=== PATIENT | female | born 1990 | race Two or more races ===

== ENCOUNTER → 2017-06-21 | Outpatient (CLI) | payer SELFPAY ==
--- NOTE | 2017-06-21 16:11 | RADIOLOGY REPORT (SQ) ---
EXAM DESCRIPTION: U/S OB 14+ TRNABD 1GES W/O DOP COMPLETED DATE/TIME: 06/21/2017 3:01 pm REASON FOR STUDY: ENCOUNTER FOR SUPERVISION OF OTHER NORMAL , SECOND TRIMESTER Z34.82 ENCO UNTER FOR SUPRVSN OF NORMAL , SECOND TRI COMPARISON: None. TECHNIQUE: Static and Dynamic grayscale imaging performed of gravid uterus using transabdominal appr oach. Additional selected color Doppler and spectral images recorded. All stored on PACS. LIMITATIONS: None. FINDINGS: EGA: 15 weeks 4 days JOHNNY: 12/09/2017 EFW: Not calculated. PERCENTILE: Not applicable. Fetus less than or equal to 20 weeks gestation. JOSE: 3.6 PLACENTA: Posterior grade 1 PRESENTATION: Cephalic. ANATOMY: HEART RATE: 137 beats per minute. FOUR CHAMBER HEART: Visualized. THREE VESSEL CORD: Yes. CORD INSERTION: Visualized. KIDNEYS AND BLADDER: Visualized. Appear normal. STOMACH: Visualized. Appears normal. SPINE: Normal as visualized. BRAIN AND LATERAL VENTRICLES: Visualized. Appear normal. OTHER: No other significant finding. MATERNAL ADNEXA: Maternal ovaries not visualized. CERVICAL LENGTH: 4.3 cm. Closed. OTHER: IMPRESSION: LIVING INTRAUTERINE . ESTIMATED GESTATIONAL AGE 15 weeks 4 days. NO VISUALIZED ANOMALIES. Trimester of : Second trimester - 13 weeks 1 day to 27 weeks 6 days. TECHNICAL DOCUMENTATION: JOB ID: [id number] [employer]- All Rights Reserved
== END ==
LOC: RAD 13:53
PROVIDERS: ATTEND Nurse Practitioner Women's Health
DX: Z34.82 Encounter for supervision of other normal pregnancy, second trimester (principal)
CPT/HCPCS: 76805

== ENCOUNTER 2017-11-29 07:34 | Inpatient (IN) | payer SELFPAY ==
[2017-11-29] MEDS ORDERED: RINGERS SOLUTION,LACTATED 500 ML IV PRN (08:33)
[2017-11-29] MEDS ORDERED: CEFAZOLIN 2 GM/D5W RTU 2 GM/50 ML RTUPB IV SCH (08:45)
[2017-11-29] MEDS ORDERED: CEFAZOLIN 2 GM/D5W RTU 2 GM/50 ML RTUPB IV PRN (09:07)
[2017-11-29 09:11] LABS: APPEARANCE,URINE SLIGHTLY-CLOUDY; BILIRUBIN,URINE NEGATIVE (NEGATIVE); COLOR,URINE YELLOW; GLUCOSE, URINE NEGATIVE (NEGATIVE); KETONES,URINE NEGATIVE (NEGATIVE); LEUKOCYTE ESTERASE,URINE NEGATIVE (NEGATIVE); NITRITE,URINE NEGATIVE (NEGATIVE); PROTEIN,URINE NEGATIVE (NEGATIVE); URINE SPECIFIC GRAVITY 1.012; UROBILINOGEN,URINE NEGATIVE mg/dL (<2.0)
[2017-11-29 09:29] LABS: ABSOLUTE EOSINOPHILS # (AUTO) 0.1 10^3/uL (0.0-0.6); ABSOLUTE LYMPHOCYTES (AUTO) 1.9 10^3/uL (0.5-4.7); ABSOLUTE MONOCYTES (AUTO) 0.4 10^3/uL (0.1-1.4); ABSOLUTE NEUT (AUTO) 4.1 10^3/uL (1.7-8.2); BASOPHILS % (AUTO) 0.5 % (0-2); HEMATOCRIT 34.8 % (36.0-47.0); HEMOGLOBIN 11.6 g/dL (12.0-15.5); LYMPHOCYTES % (AUTO) 29.4 % (13-45); MEAN CORPUSCULAR HEMOGLOBIN 25.1 pg (27.0-33.4); MEAN CORPUSCULAR HGB CONC 33.4 g/dL (32.0-36.0); MEAN CORPUSCULAR VOLUME 75 fl (80-97); MONOCYTES % (AUTO) 5.7 % (3-13); PLATELET COUNT 158 10^3/uL (150-450); RED BLOOD COUNT 4.64 10^6/uL (3.72-5.28); RED CELL DISTRIBUTION WIDTH 14.4 % (11.5-14.0); SEGMENTED NEUTROPHILS % (AUTO) 63.4 % (42-78); TOTAL CELLS COUNTED % (AUTO) 100 %; WHITE BLOOD COUNT 6.4 10^3/uL (4.0-10.5)
[2017-11-29] MEDS ORDERED: RINGERS SOLUTION,LACTATED 1,000 ML IV ONE (09:30)
[2017-11-29 09:40] LABS: URINE AMPHETAMINES SCREEN NEGATIVE; URINE BARBITURATES SCREEN NEGATIVE; URINE BENZODIAZEPINES SCREEN NEGATIVE; URINE COCAINE SCREEN NEGATIVE; URINE MARIJUANA (THC) SCREEN NEGATIVE; URINE METHADONE SCREEN NEGATIVE; URINE PHENCYCLIDINE SCREEN NEGATIVE
[2017-11-29] MEDS ORDERED: OXYTOCIN 10 UNIT/ML VIAL ONE (09:52)
[2017-11-29] MEDS ORDERED: EPHEDRINE SULFATE INJ 50 MG/1 ML AMPULE ONE (09:53)
[2017-11-29] MEDS ORDERED: PROPOFOL INJ 200 MG/20 ML VIAL IV ONE (09:53)
[2017-11-29] MEDS ORDERED: FENTANYL CITRATE INJ/PF 100 MCG/2 ML AMPUL ONE ×2 (09:53→13:33)
[2017-11-29] MEDS ORDERED: MIDAZOLAM 2 MG/2 ML INJ ONE (09:53)
[2017-11-29] MEDS ORDERED: DIPHENHYDRAMINE HCL 50 MG/ML VIAL IV PRN (11:01)
[2017-11-29] MEDS ORDERED: PROMETHAZINE HCL INJ 25 MG/1 ML VIAL IV PRN (11:01)
[2017-11-29] MEDS ORDERED: MEPERIDINE HCL/PF INJ 25 MG/1 ML DISP.SYRIN IV PRN (11:01)
[2017-11-29] MEDS ORDERED: MORPHINE SULFATE 10 MG/ML INJ IV PRN ×3 (11:01→21:30)
[2017-11-29] MEDS ORDERED: FENTANYL CITRATE INJ/PF 100 MCG/2 ML AMPUL IV PRN ×3 (11:01)
--- NOTE | 2017-11-29 12:14 | OPERATIVE REPORT E ---
Operative Report NAME: ZIA DURBIN : 1990 AGE: 27Y DATE OF SURGERY: 11/29/2017 ROOM: 218 PREOPERATIVE DIAGNOSES: 1. Intrauterine at 40+ weeks. 2. Previous section x2. 3. Undesired fertility. POSTOPERATIVE DIAGNOSES: 1. Intrauterine at 40+ weeks. 2. Previous section x2. 3. Undesired fertility. SURGEON: CECILY GRAJEDA M.D. ANESTHESIA: Dr. Valenzuela with spinal. FINDINGS: Female infant in cephalic presentation with Apgars of 8 and 9. ESTIMATED BLOOD LOSS: 600 mL. PATHOLOGY: Bilateral fallopian tubes. PROCEDURE: Repeat low transverse hysterotomy section with [place] tubal ligation. PROCEDURE IN DETAIL: The patient was taken to the operating room and prepared and draped in a normal sterile fashion in the supine position with a leftward tilt. A transverse skin incision was made with the scalpel following the patient's previous scar. This was carried through to the underlying layer of fascia with the same scalpel and the fascia was excised in the midline and extended laterally with Venegas's. The rectus muscle was then dissected sharply from the fascia with Venegas's and the rectus muscle was divided. The peritoneal cavity was entered bluntly. With good visualization of the bladder in the uterus, a bladder blade was inserted and the hysterotomy was nicked with a scalpel and extended laterally with surgeon finger fracture. The infant was then delivered atraumatically. The nose and mouth were suctioned with a suction bulb and the cord was clamped and cut and the infant was handed off to awaiting systems integration engineer. The cord blood was collected. The placenta was removed manually. The uterus was exteriorized and cleared of clots and debris. The hysterotomy was closed with 0 Monocryl in a running, locked fashion and a second layer of the same suture was used to imbricate to ensure hemostasis. Attention was then turned to the fallopian tubes where the right fallopian tube was grasped with a [place] and the mesosalpinx was divided. A 3.5 cm section of fallopian tube was then tied off with 2 pieces of 2-0 Chromic and the intermediate section was then cut with Metzenbaum's. The pedicles were made hemostatic with a Bovie. This procedure was repeated on the left fallopian tube without difficulty. The uterus was then returned to the abdomen. Peritoneal cavity was cleared of clots and debris and the pedicles were reinspected and found to be hemostatic and intact. The rectus muscle and peritoneum were reapproximated with a mattress stitch of 2-0 Chromic. The fascia was closed with 0 Vicryl. The subcutaneous layer was closed with plain catgut and the skin was closed with 4-0 Vicryl. The patient tolerated procedure well. Sponge, lap, and needle counts were correct x2. The patient was taken to recovery in stable condition. DICTATING PHYSICIAN: CECILY GRAJEDA M.D. [id number] PHY#: [id number] ID: [id number] JOB#: [id number] ACCT: [id number] cc:CECILY GRAJEDA M.D. >
[2017-11-29] MEDS ORDERED: ACETAMINOPHEN 100 ML IV ONE ×2 (12:33→19:00)
[2017-11-29] MEDS ORDERED: KETOROLAC TROMETHAMINE INJ/PF 30 MG/1 ML SDV IV SCH (14:00)
[2017-11-29] MEDS ORDERED: OXYTOCIN/NORMAL SALINE 20 UNIT/1,000 ML RTUINJ INJ PRN (14:22)
[2017-11-29] MEDS ORDERED: RINGERS SOLUTION,LACTATED 1,000 ML IV SCH (14:30)
[2017-11-29] MEDS ORDERED: MORPHINE SULFATE 10 MG/ML INJ IM PRN ×2 (14:30)
[2017-11-29] MEDS ORDERED: OXYCODONE-ACETAMINOPHEN 5-325 MG TABLET PO PRN ×2 (14:30)
[2017-11-29] MEDS ORDERED: PROMETHAZINE HCL INJ 25 MG/1 ML VIAL IM PRN (14:30)
[2017-11-29] MEDS ORDERED: MEASLES,MUMPS&RUBELLA VACC/PF 0.5 ML VIAL SUBCUT PRN (14:30)
[2017-11-29] MEDS ORDERED: ACETAMINOPHEN 325 MG TABLET PO PRN (14:30)
[2017-11-29] MEDS ORDERED: SIMETHICONE 80 MG TAB.CHEW PO PRN (14:30)
[2017-11-29] MEDS ORDERED: DIPH/PERTUSS(ACELL)/TETANUS VAC/PF 0.5 ML SYR (>=10YO) IM PRN (14:30)
[2017-11-29] MEDS: DOCUSATE SODIUM 100 MG CAPSULE PO SCH (17:48)
[2017-11-29] MEDS ORDERED: CEFAZOLIN 2 GM/D5W RTU 2 GM/50 ML RTUPB IV ONE (19:00)
[2017-11-30] MEDS: KETOROLAC TROMETHAMINE INJ/PF 30 MG/1 ML SDV IV SCH ×2 (01:59→09:53)
[2017-11-30 06:57] LABS: HEMATOCRIT 36.2 % (36.0-47.0); HEMOGLOBIN 12.1 g/dL (12.0-15.5); MEAN CORPUSCULAR HEMOGLOBIN 25.2 pg (27.0-33.4); MEAN CORPUSCULAR HGB CONC 33.4 g/dL (32.0-36.0); MEAN CORPUSCULAR VOLUME 76 fl (80-97); PLATELET COUNT 140 10^3/uL (150-450); RED BLOOD COUNT 4.79 10^6/uL (3.72-5.28); RED CELL DISTRIBUTION WIDTH 14.7 % (11.5-14.0)
--- NOTE | 2017-11-30 08:52 | PDOC PROGRESS REPORT ---
Subjective-OB Subjective: Post Delivery Day: 27 year old. Denies any needs at this time Physical Exam (OB) Vital Signs: Temp Pulse Resp BP Pulse Ox 98.2 F 74 16 117/67 98 11/30/17 07:32 11/30/17 07:32 11/30/17 07:32 11/30/17 07:32 11/30/17 07:32 Intake & Output 11/29/17 11/30/17 12/01/17 06:59 06:59 06:59 Intake Total 3050 Output Total 4900 Balance -1850 Weight 89 kg - Dressing Removed: No - Medipore dressing D&I Incision: Dressing Closure Type: Sutures - Lochia Lochia Amount: Scant < 10 ml Lochia Color: Rubra/Red - Abdomen Description: Tender, Soft Hernia Present: No Bowel Sounds: Normoactive Fundal Description: Firm, Midline Fundal Height: u/u - u/2 - Respiratory Breath sounds: Clear Objective-Diagnostic Laboratory: 11/30/17 06:11 11/29/17 11/29/17 11/29/17 08:45 09:12 09:12 WBC 6.4 RBC 4.64 Hgb 11.6 L Hct 34.8 L MCV 75 L MCH 25.1 L MCHC 33.4 RDW 14.4 H Plt Count 158 Seg Neutrophils % 63.4 Lymphocytes % 29.4 Monocytes % 5.7 Eosinophils % 1.0 Basophils % 0.5 Absolute Neutrophils 4.1 Absolute Lymphocytes 1.9 Absolute Monocytes 0.4 Absolute Eosinophils 0.1 Absolute Basophils 0.0 Urine Color YELLOW Urine Appearance SLIGHTLY-CLOUDY Urine pH 6.0 Ur Specific [place] 1.012 Urine Protein NEGATIVE Urine Glucose (UA) NEGATIVE Urine Ketones NEGATIVE Urine Blood NEGATIVE Urine Nitrite NEGATIVE Ur Leukocyte Esterase NEGATIVE Urine WBC (Auto) 1 Urine RBC (Auto) 0 Blood Type B POSITIVE Antibody Screen NEGATIVE 11/30/17 06:11 WBC 10.0 RBC 4.79 Hgb 12.1 Hct 36.2 MCV 76 L MCH 25.2 L MCHC 33.4 RDW 14.7 H Plt Count 140 L Seg Neutrophils % Lymphocytes % Monocytes % Eosinophils % Basophils % Absolute Neutrophils Absolute Lymphocytes Absolute Monocytes Absolute Eosinophils Absolute Basophils Urine Color Urine Appearance Urine pH Ur Specific [place] Urine Protein Urine Glucose (UA) Urine Ketones Urine Blood Urine Nitrite Ur Leukocyte Esterase Urine WBC (Auto) Urine RBC (Auto) Blood Type Antibody Screen Assessment and Plan(PN) - Time Spent with Patient Time with patient: Less than 15 minutes Medications reviewed and adjusted accordingly: Yes - Disposition Anticipated Discharge: Home Within: within 24 hours - pt doing well no complaints
[2017-11-30] MEDS: PRENATAL VITAMIN W DHA CAPSULE PO SCH (09:52)
[2017-11-30] MEDS: DOCUSATE SODIUM 100 MG CAPSULE PO SCH ×2 (09:52→17:45)
[2017-11-30] MEDS: IBUPROFEN 800 MG TABLET PO SCH ×2 (14:19→21:52)
[2017-12-01] MEDS: IBUPROFEN 800 MG TABLET PO SCH ×2 (06:03→09:30)
[2017-12-01] MEDS: PRENATAL VITAMIN W DHA CAPSULE PO SCH (09:30)
[2017-12-01] MEDS: DOCUSATE SODIUM 100 MG CAPSULE PO SCH (09:30)
--- NOTE | 2017-12-01 11:10 | PDOC DISCHARGE SUMMARY ---
Final Diagnosis Discharge Date: 12/01/17 - Final Diagnosis (1) Tubal ligation status Is this a current diagnosis for this admission?: Yes (2) S/P repeat low transverse Is this a current diagnosis for this admission?: Yes Discharge Data - Discharge Medication Prescriptions: Oxycodone HCl/Acetaminophen [Percocet 5-325 mg Tablet] 1 tab PO Q4HP PRN #20 tablet PRN Reason: Ibuprofen [Motrin 800 mg Tablet] 800 mg PO Q8HP PRN #60 tablet PRN Reason: Docusate Sodium [Colace 100 mg Capsule] 100 mg PO BID #60 capsule Home Medications: Levothyroxine Sodium [Synthroid] 25 mcg PO QAM 04/24/14 Docusate Sodium [Colace 100 mg Capsule] 100 mg PO BID #60 capsule 12/01/17 Ibuprofen [Motrin 800 mg Tablet] 800 mg PO Q8HP PRN #60 tablet 12/01/17 Oxycodone HCl/Acetaminophen [Percocet 5-325 mg Tablet] 1 tab PO Q4HP PRN #20 tablet 12/01/17 Reason(s) for Admission: Ceasarean Section-Repeat, Tubal Ligation Procedures: Ultrasound Intrapartum Procedure(s): : Low Cervical, Transverse, Tubal Ligation - Diagnosis Test Laboratory: Temp Pulse Resp BP Pulse Ox 98.3 F 70 16 111/65 97 12/01/17 08:19 12/01/17 08:19 12/01/17 08:19 12/01/17 08:19 12/01/17 08:19 11/29/17 11/29/17 11/30/17 08:45 09:12 06:11 RBC 4.64 4.79 Hgb 11.6 L 12.1 Hct 34.8 L 36.2 Urine Opiates Screen NEGATIVE - Discharge information/Instructions Discharge Activity: Activity As Tolerated, Balance Activity w/Rest, No Driving, No Lifting Over 10 Pounds, No Lifting/Push/Pulling, Pelvic Rest, Slowly Increase Activity, No tub bath, Walk Frequently Discharge Diet: Regular - incision check Disposition: HOME, SELF-CARE Follow up with: [facility] in: 5, Days - incision check
[2017-12-01 12:15] VITALS: BP 113/65
== END 2017-12-01 12:44 | disposition home or self-care (01) | DRG 766 ==
LOC: 2S 07:34
PROVIDERS: ADMIT Obstetrics & Gynecology; ATTEND Obstetrics & Gynecology
PROC: 0UB70ZZ Excision of Bilateral Fallopian Tubes, Open Approach (ICD-10-PCS; 2017-11-29)
PROC: 4A1HXCZ Monitoring of Products of Conception, Cardiac Rate, External Approach (ICD-10-PCS; 2017-11-29)
PROC: 10D00Z1 Extraction of Products of Conception, Low, Open Approach (ICD-10-PCS; principal; 2017-11-29 09:15)
DX: O34.211 Maternal care for low transverse scar from previous cesarean delivery (principal); O99.214 Obesity complicating childbirth; E66.9 Obesity, unspecified; Z68.34 Body mass index [BMI] 34.0-34.9, adult; Z30.2 Encounter for sterilization; Z28.21 Immunization not carried out because of patient refusal; Z3A.40 40 weeks gestation of pregnancy; Z37.0 Single live birth
CPT/HCPCS: 1961; 36415; 80307; 81001; 85025; 85027; 86850; 86900; 86901; 88302; 90715; 94799; J0131; J0690; J1885; J2250; J2590; J2704; J3010; J3490

== ENCOUNTER 2019-12-16 03:30 | Emergency (ER) | payer SELFPAY ==
[2019-12-16] MEDS ORDERED: ONDANSETRON 4 MG TAB.RAPDIS PO ONE (03:54)
[2019-12-16 04:33] LABS: APPEARANCE,URINE TURBID; BILIRUBIN,URINE NEGATIVE (NEGATIVE); COLOR,URINE YELLOW; GLUCOSE, URINE NEGATIVE (NEGATIVE); KETONES,URINE NEGATIVE (NEGATIVE); LEUKOCYTE ESTERASE,URINE LARGE (NEGATIVE); NITRITE,URINE POSITIVE (NEGATIVE); PROTEIN,URINE 100 mg/dL (NEGATIVE); URINE SPECIFIC GRAVITY 1.013; UROBILINOGEN,URINE NEGATIVE mg/dL (<2.0)
[2019-12-16 05:08] LABS: ABSOLUTE BASOPHILS # (AUTO) 0.1 10^3/uL (0.0-0.2); ABSOLUTE EOSINOPHILS # (AUTO) 0.1 10^3/uL (0.0-0.6); ABSOLUTE LYMPHOCYTES (AUTO) 1.9 10^3/uL (0.5-4.7); ABSOLUTE MONOCYTES (AUTO) 0.6 10^3/uL (0.1-1.4); ABSOLUTE NEUT (AUTO) 7.8 10^3/uL (1.7-8.2); BASOPHILS % (AUTO) 0.5 % (0-2); EOSINOPHILS % (AUTO) 0.8 % (0-6); HEMATOCRIT 36.4 % (36.0-47.0); HEMOGLOBIN 12.3 g/dL (12.0-15.5); LYMPHOCYTES % (AUTO) 18.3 % (13-45); MEAN CORPUSCULAR HEMOGLOBIN 24.1 pg (27.0-33.4); MEAN CORPUSCULAR HGB CONC 33.7 g/dL (32.0-36.0); MEAN CORPUSCULAR VOLUME 72 fl (80-97); MONOCYTES % (AUTO) 6.1 % (3-13); PLATELET COUNT 231 10^3/uL (150-450); RED BLOOD COUNT 5.09 10^6/uL (3.72-5.28); RED CELL DISTRIBUTION WIDTH 14.4 % (11.5-14.0); SEGMENTED NEUTROPHILS % (AUTO) 74.3 % (42-78); TOTAL CELLS COUNTED % (AUTO) 100 %; WHITE BLOOD COUNT 10.4 10^3/uL (4.0-10.5)
[2019-12-16 05:28] LABS: ALBUMIN 4.2 g/dL (3.5-5.0); ALKALINE PHOSPHATASE 79 U/L (38-126); ANION GAP 11 (5-19); ASPARTATE AMINO TRANSFERASE 23 U/L (14-36); BILIRUBIN,TOTAL 0.6 mg/dL (0.2-1.3); BLOOD UREA NITROGEN 8 mg/dL (7-20); CALCIUM 9.2 mg/dL (8.4-10.2); CARBON DIOXIDE 23 mmol/L (22-30); CHLORIDE 103 mmol/L (98-107); GLUCOSE 101 mg/dL (75-110); POTASSIUM 3.9 mmol/L (3.6-5.0); TOTAL PROTEIN 7.5 g/dL (6.3-8.2)
[2019-12-16] MEDS ORDERED: NORMAL SALINE 1000 ML 1,000 ML IV ONE (06:48)
[2019-12-16] MEDS ORDERED: KETOROLAC TROMETHAMINE INJ/PF 30 MG/1 ML SDV IV ONE (06:48)
[2019-12-16] MEDS ORDERED: CEFTRIAXONE 1 GM/D5W RTU 1 GM/50 ML RTUPB IV ONE (06:48)
--- NOTE | 2019-12-16 07:05 | ER Document Report ---
Entered by MOMO CALHOUN SCRIBE 12/16/19 0649 Acting as scribe for:ELIZABETH RICHARDSON MD ED General - General Chief Complaint: Flank Pain Stated Complaint: VOMITING,PELVIC PAIN Time Seen by Provider: 12/16/19 06:42 Primary Care Provider: DAYNA MORENO MD [Primary Care Provider] - Follow up as needed Information source: Patient Notes: 29 year old female presents to the emergency department with right flank pain that radiates to the RLQ and back that began three days ago. Patient states that the pain has been worse since yesterday and she "might have had a fever". Patient denies associated nausea and vomiting. TRAVEL OUTSIDE OF THE [place] IN LAST 30 DAYS: No - Related Data Allergies/Adverse Reactions: No Known Allergies Allergy (Verified 04/24/14 08:30) Home Medications: synthroid Past Medical History - General Information source: Patient - Social History Smoking Status: Never Smoker Family History: Reviewed & Not Pertinent Patient has suicidal ideation: No Patient has homicidal ideation: No Endocrine Medical History: Reports: Hx Hypothyroidism Surgical Hx: Negative Review of Systems - Review of Systems Constitutional: See HPI, Fever EENT: No symptoms reported Cardiovascular: No symptoms reported Respiratory: No symptoms reported Gastrointestinal: See HPI, Abdominal pain. denies: Nausea, Vomiting Genitourinary: No symptoms reported Female Genitourinary: No symptoms reported Musculoskeletal: See HPI, Back pain Skin: No symptoms reported Hematologic/Lymphatic: No symptoms reported Neurological/Psychological: No symptoms reported -: Yes All other systems reviewed and negative Physical Exam - Vital signs Vitals: Temp Pulse Resp BP Pulse Ox 97.9 F 92 18 135/84 H 100 12/16/19 03:38 12/16/19 03:38 12/16/19 03:38 12/16/19 03:38 12/16/19 03:38 - Notes Notes: Physical Exam: General: Alert, appears uncomfortable. HEENT: Normocephalic. Atraumatic. PERRL. Extraocular movements intact. Oropharynx clear. Neck: Supple. Non-tender. Respiratory: No respiratory distress. Clear and equal breath sounds bilaterally. Cardiovascular: Regular rate and rhythm. Abdominal: RLQ and RUQ tenderness with palpation. No distension. Normal Bowel So unds. Back: Right CVA tenderness with percussion. Extremities: Moves all four extremities. Upper extremities: Normal inspection. Normal ROM. Lower extremities: Normal inspection. No edema. Normal ROM. Neurological: Normal cognition. AAOx4. Normal speech. Psychological: Normal affect. Normal Mood. Skin: Warm. Dry. Normal color. Course - Vital Signs Vital signs: Temp Pulse Resp BP Pulse Ox 98.9 F 96 20 124/66 99 12/16/19 06:32 12/16/19 06:32 12/16/19 06:32 12/16/19 06:32 12/16/19 06:32 - Laboratory Result Diagrams: 12/16/19 04:40 12/16/19 04:40 Laboratory results interpreted by me: 12/16/19 12/16/19 12/16/19 04:02 04:40 04:40 MCV 72 L MCH 24.1 L RDW 14.4 H Sodium 136.7 L Urine Protein 100 H Urine Blood MODERATE H Urine Nitrite POSITIVE H Ur Leukocyte Esterase LARGE H - Diagnostic Test Radiology reviewed: Image reviewed, Reports reviewed - CT scan shows moderate right hydronephrosis and hydroureter with adjacent fat stranding. Mild to moderate bladder wall thickening. Consistent with a sending urinary tract infection. No calcified stones identified. Discharge - Discharge Clinical Impression: Pyelonephritis Condition: Stable Disposition: HOME, SELF-CARE Additional Instructions: Pyelonephritis Your evaluation shows evidence of pyelonephritis. This is an infection in the kidney. Typical symptoms are fever, pain in the flank, pain on urination, and frequent urination. Many cases of pyelonephritis can be treated at home. Hospital care may be necessary for patients who are very ill, or elderly or . Pyelonephritis is treated with antibiotics. Be sure to take all the medication as prescribed. Drink plenty of liquids (about three quarts per day). You may take acetaminophen for fever. You should feel significantly improved within two days. You should have a recheck of your urine in about one week to insure that the infection is gone. Return for a re-examination if your symptoms worsen in any way -- such as high fever, shaking chills, severe weakness or dizziness, severe pain, or inability to pass your urine. Take the ciprofloxacin as prescribed. Drink plenty of fluids throughout the day in the evening. Take ibuprofen 400 mg every 6 hours for pain control. Take the [place] as prescribed for pain if the ibuprofen does not help enough. Follow-up with a local primary care provider next week for recheck. RETURN TO THE EMERGENCY ROOM IF ANY NEW OR WORSENING SYMPTOMS. Prescriptions: Ciprofloxacin HCl [Cipro 500 mg Tablet] 500 mg PO BID #14 tablet Hydrocodone/Acetaminophen [[place] 5-325 mg Tablet] 1 tab PO ASDIR PRN #12 tablet PRN Reason: Referrals: DAYNA MORENO MD [Primary Care Provider] - Follow up as needed Scribe Attestation: 12/16/19 09:37 I personally performed the services described in the documentation, reviewed and edited the documentation which was dictated to the scribe in my presence, and it accurately records my words and actions. I personally performed the services described in the documentation, reviewed and edited the documentation which was dictated to the scribe in my presence, and it accurately records my words and actions.
--- NOTE | 2019-12-16 08:14 | RADIOLOGY REPORT (SQ) ---
EXAM DESCRIPTION: CT ABD/PELVIS NO ORAL OR IV COMPLETED DATE/TIME: 12/16/2019 7:12 am REASON FOR STUDY: R flank and RLQ abd pain, UTI w/ hematuria COMPARISON: None. TECHNIQUE: CT scan of the abdomen and pelvis performed without intravenous or oral contrast. Images reviewed with lung, soft tissue, and bone windows. Reconstructed coronal and sagittal MPR images revi ewed. All images stored on PACS. All CT scanners at this facility use dose modulation, iterative reconstruction, and/or weight based d osing when appropriate to reduce radiation dose to as low as reasonably achievable (ALARA). [facility]: Dose Right [facility]: CareDose [facility]: Dose Right [facility]: Teradose 4D [facility]: Smart ProtoShare RADIATION DOSE: CT Rad equipment meets quality standard of care and radiation dose reduction techniq ues were employed. CTDIvol: 11.4 mGy. DLP: 666 mGy-cm.mGy. LIMITATIONS: None. FINDINGS: LOWER CHEST: No significant findings. No nodules or infiltrates. NON-CONTRASTED LIVER, SPLEEN, ADRENALS: Evaluation limited by lack of IV contrast. No identified sign ificant masses. PANCREAS: No masses. No peripancreatic inflammatory changes. GALLBLADDER: No calcified stones. No inflammatory changes to suggest cholecystitis. RIGHT KIDNEY AND URETER: No cysts identified. No solid masses. No calcified stones identified. Moder ate right hydronephrosis - hydroureter with adjacent fat stranding. LEFT KIDNEY AND URETER: No cysts identified. No solid masses. No calcified stones. No hydronephrosis or hydroureter. AORTA AND RETROPERITONEUM: No aneurysm. No retroperitoneal masses or adenopathy. BOWEL AND PERITONEAL CAVITY: No obvious masses or inflammatory changes. No free fluid. APPENDIX: Normal. PELVIS, BLADDER, AND ABDOMINAL WALL:Mild- Moderate bladder wall thickening. No free fluid. BONES: No acute findings. OTHER: No other significant finding. IMPRESSION: No calcified stones identified. Moderate right hydronephrosis - hydroureter with adjac ent fat stranding. Mild- Moderate bladder wall thickening. Consider possibility of ascending urinar y tract infection. TECHNICAL DOCUMENTATION: JOB ID: [id number] Quality ID # [id number]: Final reports with documentation of one or more dose reduction techniques (e.g., Au tomated exposure control, adjustment of the mA and/or kV according to patient size, use of iterative reconstruction technique) 2010 [employer]- All Rights Reserved Reading location - IP/workstation name: [facility]
[2019-12-16 10:23] VITALS: BP 102/62
== END 2019-12-16 10:22 | disposition home or self-care (01) ==
LOC: ER 03:30
DX: N12 Tubulo-interstitial nephritis, not specified as acute or chronic (principal); R10.9 Unspecified abdominal pain; R11.10 Vomiting, unspecified; R10.2 Pelvic and perineal pain; R10.31 Right lower quadrant pain; M54.9 Dorsalgia, unspecified
CPT/HCPCS: 99284; 96361; 96375; 96365; 36415; 87086; 83690; 84703; 85025; 87088; 80053; 81001; 87186; 74176; S0119; J1885; J7030; J0696